=== PATIENT | male | born 1995 | race Caucasian/White ===

== ENCOUNTER 2017-11-15 04:36 | Emergency (ER) | payer OTHER ==
[2017-11-15 04:41] VITALS: BP 132/90
[2017-11-15] MEDS ORDERED: AMOXICILLIN/CLAVULANATE POT 875/125 MG TAB PO ONE (04:42)
--- NOTE | 2017-11-15 04:42 | EDPHY ---
H & P Stated Complaint: DOG BITE L FA Time Seen by Provider: 11/15/17 04:41 HPI/ROS: HPI CHIEF COMPLAINT: Left forearm dog bite his own dog. HISTORY OF PRESENT ILLNESS: 22-year-old male, otherwise healthy no significant medical history presents emergency room with a dog bite to his left forearm. Rather superficial. It was his own dog. He states he was sleeping and woke up to his dog growling and then felt a bite to his left arm. He took a new per here. He states he had 10 alcoholic beverages tonight. Denies significant pain. Tetanus shot up-to-date. He reports his dog is up-to-date on shots. A he sustained to the left forearm dorsal side superficial abrasion/laceration. It does not require repair. Past Medical History: No medical history Past Surgical History: No surgical history Social History: Denies daily use of drugs or tobacco. Had alcohol this evening. Multiple drinks. Family History: Noncontributory ROS REVIEW OF SYSTEMS: A comprehensive 10 point review of systems is otherwise negative aside from elements mentioned in the history of present illness. Exam Constitutional triage nursing summary reviewed, vital signs reviewed, awake/ alert. Eyes normal conjunctivae and sclera, EOMI, PERRLA. HENT normal inspection, atraumatic, moist mucus membranes, no epistaxis, neck supple/ no meningismus, no raccoon eyes. Respiratory clear to auscultation bilaterally, normal breath sounds, no respiratory distress, no wheezing. Cardiovascular rate normal, regular rhythm, no murmur, no edema, distal pulses normal. Gastrointestinal soft, non-tender, no rebound, no guarding, normal bowel sounds, no distension, no pulsatile mass. Genitourinary no CVA tenderness. Musculoskeletal no midline vertebral tenderness, full range of motion, no calf swelling, no tenderness of extremities, no meningismus, good pulses, neurovascularly intact. Skin left forearm dorsal aspect superficial laceration no significant laceration, no deep wound. No signs of infection. No evidence of foreign body. Neurologic awake, alert and oriented x 3, AAOx3, moves all 4 extremities equally, motor intact, sensory intact, CN II-XII intact, normal cerebellar, normal vision, normal speech. Psychiatric normal mood/affect. Heme/Lymph/Immune no lymphadenopathy. Differential Diagnosis: Includes but is not limited to in a particular order dog bite, superficial abrasion, facial laceration, soft tissue injury, fracture , foreign body Medical Decision Making: Plan for this patient will start on Augmentin here in emergency room for prophylaxis of antibiotics. Augmentin prescription will be provided. Additionally x-ray forearm to rule out foreign body or fracture. Re-evaluation: Left forearm reviewed at no evidence of foreign body or fracture there is soft tissue swelling. The wound is been copiously irrigated and cleaned. There is no evidence of foreign bodies visualized. No significant laceration that needs repair. Augmentin will be started. Source: Patient - Personal History Current Tetanus Diphtheria and Acellular Pertussis (TDAP): Yes - Medical/Surgical History Hx Asthma: No Hx Chronic Respiratory Disease: No Hx Diabetes: No Hx Cardiac Disease: No Hx Renal Disease: No Hx Cirrhosis: No Hx Alcoholism: No Hx HIV/AIDS: No Hx Splenectomy or Spleen Trauma: No Other PMH: APPY - Social History Smoking Status: Light smoker Constitutional: Initial Vital Signs Temperature (C) 36.4 C 11/15/17 04:39 Heart Rate 134 H 11/15/17 04:39 Respiratory Rate 16 11/15/17 04:39 Blood Pressure 132/90 H 11/15/17 04:39 O2 Sat (%) 94 11/15/17 04:39 O2 Delivery Mode Room Air Allergies/Adverse Reactions: No Known Allergies Allergy (Unverified 11/15/17 04:39) Home Medications: Medication Instructions Recorded Amoxicillin/Clavulanate Pot 875 mg PO BID #14 tab 11/15/17 [Augmentin 875 MG TAB (*)] Medical Decision Making - Data Points Medications Given: Discontinued Medications Amoxicillin/Clavulanate Potassium (Augmentin 875mg) 875 mg PO EDNOW ONE PRN Reason: Protocol Stop: 11/15/17 04:43 Last Admin: 11/15/17 05:00 Dose: 875 mg Departure - Departure Disposition: Home, Routine, Self-Care Clinical Impression: Dog bite Qualifiers: Encounter type: initial encounter Qualified Code(s): W54.0XXA - Bitten by dog, initial encounter Condition: Good Instructions: Animal Bite (ED) Additional Instructions: 1. Recommend antibiotics as prescribed. 2. Watch for signs of infection this includes redness, swelling, worsening pain. 3. Keep her wound clean, dry and protected. Warm soapy water when he shower is fine. Prescriptions: Amoxicillin/Clavulanate Pot [Augmentin 875 MG TAB (*)] 875 mg PO BID #14 tab
== END 2017-11-15 05:24 | disposition home or self-care (01) ==
DX: S51.852A Open bite of left forearm, initial encounter (principal); F17.200 Nicotine dependence, unspecified, uncomplicated; W54.0XXA Bitten by dog, initial encounter; Y99.8 Other external cause status; Y93.89 Activity, other specified